=== PATIENT | male | born 1975 | race Caucasian/White ===

== ENCOUNTER 2020-08-23 06:53 | Outpatient (NON) | payer OTHER, SELFPAY ==
[2020-08-24 18:24] LABS: SARS-CoV-2 RNA PCR Negative
== END 2020-08-23 06:54 ==
PROVIDERS: Visit Provider Physician Assistant
DX: Z20.828 Contact with and (suspected) exposure to other viral communicable diseases (principal); J02.9 Acute pharyngitis, unspecified; R52 Pain, unspecified
CPT/HCPCS: 87635; C9803; U0003

== ENCOUNTER → 2022-04-24 11:13 | Outpatient (CLI) | payer OTHER, SELFPAY ==
--- NOTE | ~2022-04-24 | XR_ITS ---
EXAM: XR cervical spine min 6V DATE: 04/24/2022 11:42 HISTORY: M54.12 - Radiculopathy, cervical region . COMPARISON: 11/05/2016. FINDINGS: Craniocervical association and atlantoaxial joint are normal. No prevertebral soft tissue swelling. Reversal of the cervical lordosis centered at C5. Trace anterolisthesis of C4 on C5. Trace retrolisthesis of C5 on C6. Minimal height loss of the C5 and C6 vertebral bodies. Disc space narrowi ng, moderate at C6-7 and mild at C5-6, with uncovertebral joint hypertrophy at both levels. Mild mult ilevel facet sclerosis. IMPRESSION: Lower cervical degenerative disc changes, described above. Multilevel facet arthropathy. No dynamic listhesis. Reviewed, dictated and finalized at location K. IMPRESSION: Lower cervical degenerative disc changes, described above. Multilev el facet arthropathy. No dynamic listhesis.
== END ==
PROVIDERS: PCP Family Medicine; Visit Provider Family Medicine
DX: M54.12 Radiculopathy, cervical region (principal); M41.9 Scoliosis, unspecified
CPT/HCPCS: 72052

== ENCOUNTER → 2022-05-04 13:14 | Outpatient (CLI) | payer SELFPAY ==
--- NOTE | ~2022-05-04 | MR_ITS ---
EXAMINATION: MR cervical spine wo con DATE: 05/04/2022 14:05 INDICATION: Neck and right shoulder and arm pain with progressive weakness and inability to lift the arm TECHNIQUE: Magnetic resonance imaging (MRI) of the cervical spine was performed without intravenous c ontrast. Sequences included sagittal T2-weighted FSE, sagittal T2-weighted FS FSE, sagittal T1-weight ed FSE, axial MERGE and axial T2-weighted FSE. COMPARISON: Radiographs dated 04/24/2022 and 11/05/2016 FINDINGS: A degree cervical dextrocurvature and a degree cervicothoracic levocurvature. Mild reversal of the no rmal cervical lordosis. Chronic mild anterior wedging at C4. Remaining vertebral body heights are nor mal. Bone marrow signal intensity is normal. Moderate disc height loss at C6-C7. Mild disc height lo ss at C4-C5 and C5-C6. Cord signal intensity is normal. The visualized cervical soft tissues are unre markable. The following disc levels are specifically discussed: C2-C3: The disc does not extend beyond the endplate margin. There is mild left uncovertebral joint os teoarthritis. There is mild bilateral facet joint osteoarthritis. There is minimal left neural forami nal stenosis. There is no central canal stenosis. C3-C4: Minimal left paracentral to foraminal zone disc protrusion. There is mild bilateral uncoverteb ral joint osteoarthritis. There is mild right and mild to moderate left facet joint osteoarthritis. T here is mild left neural foraminal stenosis. There is minimal central canal stenosis. C4-C5: Disc is mildly bulging. There is mild bilateral uncovertebral joint osteoarthritis. There is m ild bilateral facet joint osteoarthritis. There is no neural foraminal stenosis. There is mild centra l canal stenosis. C5-C6: Disc is bulging. There is moderate left and severe right uncovertebral joint osteoarthritis. T here is mild bilateral facet joint osteoarthritis. There is mild to moderate left and moderate right neural foraminal stenosis. There is mild with mild indentation of the ventral surface of the cord arlene tral canal stenosis. C6-C7: Disc is bulging. There is moderate left and severe right uncovertebral joint osteoarthritis. T here is mild bilateral facet joint osteoarthritis. There is mild to moderate left and moderate right neural foraminal stenosis. There is mild central canal stenosis. C7-T1: The disc does not extend beyond the endplate margin. There is no uncovertebral joint osteoarth ritis. There is mild right and mild to moderate left facet joint osteoarthritis. There is mild left n eural foraminal stenosis. There is no central canal stenosis. IMPRESSION: 1. Moderate lower cervical predominant spondylosis Reviewed, dictated and finalized at location A.
== END ==
PROVIDERS: PCP Family Medicine; Visit Provider Family Medicine
DX: R53.1 Weakness (principal); M47.812 Spondylosis without myelopathy or radiculopathy, cervical region
CPT/HCPCS: 99199; 72141

== ENCOUNTER 2023-06-17 11:35 | Emergency (ER) | payer OTHER, SELFPAY ==
[2023-06-17 11:50] VITALS: BP 131/87; PULSE 80; RESP 16; TEMP 36.6; O2SAT 100
--- NOTE | 2023-06-17 12:07 | ED.BURNSMOKE ---
HPI - Burn/Smoke Inhalation General Chief complaint: Burn/Smoke Inhalation Stated complaint: Blister on right hand Time Seen by Provider: 06/17/23 11:52 Source: patient and RN notes reviewed Mode of arrival: ambulatory Limitations: no limitations History of Present Illness HPI Narrative: Patient presents today with a burn to the palm of his right hand that was sustained on a grill last night. He has tried no [id number] interventions prior to arrival. Currently rates his pain 5/10. He is not up-to-date on his tetanus vaccine. States he is having some discomfort in his 5th finger when he moves his hand. States he has bumped the blister several times so far today. He is afraid it will rupture while he is working. Related Data Allergies Allergy/AdvReac Type Severity Reaction Status Date / Time No Known Allergies Allergy Verified 06/17/23 11:49 Review of Systems Review of Systems: CONSTITUTIONAL: Denies body aches, fever, chills, or sweats. EYES: Denies visual changes, redness, or discharge. ENT: Denies rhinorrhea, congestion, sore throat, or otalgia. CARDIOVASCULAR: Denies chest pain, palpitations, or edema. RESPIRATORY: Denies cough or dyspnea. GASTROINTESTINAL: Denies abdominal pain, nausea, vomiting, or diarrhea. GENITOURINARY: Denies dysuria or hematuria. SKIN: + burn to right palm MUSCULOSKELETAL: Denies back pain, joint pain, or myalgia. NEUROLOGIC: Denies headache, numbness, tingling, or weakness. PSYCH: Denies depression or anxiety. [facility] Past Medical History Medical History Hyperuricemia Surgical History Surgical History History of removal of skin mole Family History Family History Other Family history of allergic disorder Family history of malignant neoplasm Hypertension Social History Social History Smoking status: Never smoker Alcohol intake: current Comments At time of signature, I have reviewed and agree with nursing past medical, surgical, social and family history unless otherwise noted. Please see nursing chart for further information. There is no relevant family history pertinent to the presenting complaint Exam Narrative: GENERAL: Well-appearing, well-nourished, and in no acute distress. HEAD: Normocephalic, atraumatic. EYES: EOMI. No redness or drainage. Conjunctivae normal. ENT: Mucous membranes pink and moist. NECK: Normal AROM. CHEST: No respiratory distress. EXTREMITIES: Normal range of motion. No edema. SKIN: Warm, dry, no rash. Capillary refill normal. Normal skin turgor. 4 x 2.5 cm by a 1.5 cm high fluid-filled blister to the palm of the right hand at the base of the 5th metacarpal. It is very tightly filled with fluid. Patient states he has some pain in his 5th finger when he tries to make a fist. Distal sensation intact. Capillary refill normal. NEURO: No focal deficits. Alert and oriented x3. Gait steady. PSYCH: Normal affect. No signs of depression or anxiety. Course Course Level of Care: Express Care Visit Vital Signs Vital signs: Vital Signs Temperature 97.9 F 06/17/23 11:50 Pulse Rate 80 06/17/23 11:50 Respiratory Rate 16 06/17/23 11:50 Blood Pressure 131/87 06/17/23 11:50 Pulse Oximetry 100 06/17/23 11:50 Oxygen Delivery Room Air 06/17/23 11:50 Temperature 97.9 F 06/17/23 11:50 Pulse Rate 80 06/17/23 11:50 Respiratory Rate 16 06/17/23 11:50 Blood Pressure 131/87 06/17/23 11:50 Pulse Oximetry 100 06/17/23 11:50 Oxygen Delivery Room Air 06/17/23 11:50 Reviewed. Pt has been instructed to follow up with his PCP regarding his elevated blood pressure today. Procedures Other Procedure Procedure 1: Other Procedure: Large blister on marychuy
[2023-06-17] MEDS: TETANUS,DIPHTHERIA,AC PERTUSSIS ADULT (0.5 ML) BOOSTRIX IM (12:11)
== END 2023-06-17 12:18 | disposition home or self-care (01) ==
PROVIDERS: Emergency Provider Nurse Practitioner; PCP Family Medicine
DX: T23.251A Burn of second degree of right palm, initial encounter (principal); T31.0 Burns involving less than 10% of body surface; Z23 Encounter for immunization; X19.XXXA Contact with other heat and hot substances, initial encounter
CPT/HCPCS: 16020; 90715; 99213; G0463

== ENCOUNTER 2025-06-08 10:09 | Outpatient (CLI) | payer BC, SELFPAY ==
[2025-06-08 16:14] LABS: Alanine Aminotransferase 25 U/L (6-50); Albumin Level 4.5 g/dL (3.5-5.1); Alkaline Phosphatase 75 U/L (38-126); Anion Gap 9 mmol/L (4-12); Aspartate Amino Transferase 44 U/L (17-59); Bilirubin,Total 0.8 mg/dL (0.2-1.3); Blood Urea Nitrogen 11 mg/dL (9-20); Calcium 9.1 mg/dL (8.4-10.2); Carbon Dioxide 25 mmol/L (22-30); Chloride 103 mmol/L (98-107); Cholesterol 237 mg/dL (0-200); Estimated Glomerular Filt Rate > 60; Glucose 85 mg/dL (65-110); HDL Direct 46 mg/dL; Potassium 4.7 mmol/L (3.4-5.0); Sodium 137 mmol/L (137-145); Total Protein 8.0 g/dL (6.3-8.2); Triglycerides 185 mg/dL (<150); Uric Acid 5.9 mg/dL (3.5-8.5)
[2025-06-08 16:46] LABS: Thyroid Stimulating Hormone 1.790 uIU/mL (0.465-4.680)
== END 2025-06-08 10:10 | disposition home or self-care (01) ==
PROVIDERS: PCP Family Medicine; Visit Provider Nurse Practitioner Family
DX: Z00.00 Encounter for general adult medical examination without abnormal findings (principal); E79.0 Hyperuricemia without signs of inflammatory arthritis and tophaceous disease
CPT/HCPCS: 36415; 80053; 80061; 84443; 84550

== ENCOUNTER 2025-06-18 17:38 | Emergency (ER) | payer BC, SELFPAY ==
[2025-06-18 17:57] VITALS: BP 139/83; PULSE 93; RESP 16; TEMP 36.6; O2SAT 99
--- NOTE | 2025-06-18 18:59 | ED_ITS ---
HPI - Ear Problem General Chief complaint: Ear Stated complaint: EARACHE Time Seen by Provider: 06/18/25 18:45 Source: patient and RN notes reviewed Mode of arrival: ambulatory Limitations: no limitations History of Present Illness HPI Narrative: 50-year-old male presents Express Care complaining of bilateral earache for the last 2 weeks. Patient also reports having sinus congestion, nasal drainage. Patient also reports a dry cough. Patient denies any chest pain, shortness of breath, sore throat, body aches, chills, fevers, nausea vomiting, diarrhea, or any other symptoms. Patient has been using [id number] medicine and nasal spray with some relief. Patient denies any significant past medical history. Related Data Home Medications ?Medication ?Instructions ?Recorded ?Confirmed ?Last Taken ?Type testosterone cypionate 200 mg/mL 200 mg IM ONCE Unknown History intramuscular oil Allergies Allergy/AdvReac Type Severity Reaction Status Date / Time No Known Allergies Allergy Verified 06/08/25 10:35 Review of Systems Review of Systems: CONSTITUTIONAL: Denies fever, chills, or sweats. EYES: Denies visual changes, redness, or discharge. ENT: Denies rhinorrhea, sore throat. Positive for congestion and otalgia. CARDIOVASCULAR: Denies chest pain, palpitations, or edema. RESPIRATORY: Positive for cough. Negative for wheezing or dyspnea. GASTROINTESTINAL: Denies abdominal pain, nausea, vomiting, or diarrhea. GENITOURINARY: Denies dysuria or hematuria. SKIN: Denies rash or itching. MUSCULOSKELETAL: Denies back pain, joint pain, or myalgia. NEUROLOGIC: Denies headache, numbness, or weakness. PSYCHIATRIC: Denies anxiety or depression. All other systems reviewed are negative, except as documented in HPI. [facility] Past Medical History Medical History Hyperuricemia Surgical History Surgical History History of removal of skin mole Family History Family History Other Family history of allergic disorder Family history of malignant neoplasm Hypertension Social History Social History Smoking status: Never smoker Alcohol intake: current Lack of Transportation: No Lack of Food: Never True Current Housing: I Have Housing Concerned About Future Housing: No Difficulty Paying Gas/Electric Bills: No Difficulty Paying for Meds: No Currently Unemployed: No Education: Trade/Vocational Certificate Difficulty w/ Childcare or Family Care: No Comments At the time of my signature, I reviewed and agree with the nursing past medical, surgical, social, and family history. There is no relevant family history pertinent to the patient complaint. Exam Narrative: GENERAL: This is a well-nourished, well-developed adult, in no apparent distress. They are non ill-appearing, nontoxic appearing. HEAD: normocephalic, atraumatic. EYES: Sclera clear/white. Conjunctiva normal. Vision is grossly intact. Extraocular movements intact EARS: External ears normal, auditory canals clear and without drainage, TMs normal without perforation. Hearing grossly intact. NOSE: External nose normal with no obvious nasal discharge, nasal turbinates erythematous, no rhinorrhea. Maxillary sinus tenderness to palpation. THROAT: Mucous membranes moist, posterior pharynx erythema or swelling. Uvula midline. Postnasal drip present. NECK: Neck supple, non-tender without lymphadenopathy, masses or thyromegaly. CARDIOVASCULAR: Regular rate and rhythm without murmurs, gallops, or rubs. RESPIRATORY: Clear to auscultation. Breath sounds equal bilaterally. No wheezes, rales, or rhonchi. SKIN: warm, Dry, intact with no suspicious lesions or rash, good texture and turgor. NEURO: awake, alert, and oriented to person, place and time. There were no obvious focal neurologic abnormalities. EXTREMITIES: No joint tenderness, effusion, or edema noted. Course Course Emergency Course: Portions of this record may have been created with voice recognition software Level of Care: Express Care Visit Vital Signs Vital signs: Vital Signs Temperature 98 F 06/18/25 17:57 Pulse Rate 93 06/18/25 17:57 Respiratory Rate 16 06/18/25 17:57 Blood Pressure 139/83 06/18/25 17:57 Pulse Oximetry 99 06/18/25 17:57 Temperature 98 F 06/18/25 17:57 Pulse Rate 93 06/18/25 17:57 Respiratory Rate 16 06/18/25 17:57 Blood Pressure 139/83 06/18/25 17:57 Pulse Oximetry 99 06/18/25 17:57 Reviewed Medical Decision Making MDM Narrative Medical decision making narrative: Patient likely has bacterial sinusitis. Will treat with Augmentin. Discussed physical exam findings. Advised supportive measures and signs/symptoms to go to the ER. Pt is appropriate for outpt treatment and f/u. Differential Diagnosis Differential Diagnosis: Sinusitis, upper respiratory infection, otitis media, otitis externa, viral illness Vital Signs Vital Signs: Vital Signs Temperature 98 F 06/18/25 17:57 Pulse Rate 93 06/18/25 17:57 Respiratory Rate 16 06/18/25 17:57 Blood Pressure 139/83 06/18/25 17:57 Pulse Oximetry 99 06/18/25 17:57 Temperature 98 F 06/18/25 17:57 Pulse Rate 93 06/18/25 17:57 Respiratory Rate 16 06/18/25 17:57 Blood Pressure 139/83 06/18/25 17:57 Pulse Oximetry 99 06/18/25 17:57 Critical Care Time Critical Care Time Critical Care Time: No Discharge Plan Discharge Clinical Impression: Sinusitis Qualifiers: Sinusitis location: unspecified location Chronicity: acute Recurrence: non- recurrent Qualified Code(s): J01.90 - Acute sinusitis, unspecified Patient Disposition: Home Condition: Stable Instructions: Antibiotic Form, Sinusitis (ED) Additional Instructions: Take the antibiotics as directed and complete the course even if you start to feel better. You may use a Neti pot saline rinse 3 times a day with lukewarm distilled water Continue to take Tylenol or Motrin for pain. Use a humidifier or vaporizer at night. Drink plenty of water. 8-10 glasses per day. Use flonase or azelastine spray 2 times per day for 5 days then as needed Take mucinex 2 times per day and be sure to take with 8oz of water. Follow up with Primary provider in 3-5 days Please go to the ER if he develops any difficulty breathing, worsening symptoms, or any other concerns Patient Language: Ethiopian Prescriptions: New amoxicillin-pot clavulanate 875-125 mg tablet 1 tablet PO Q12H 7 Days Qty: 14 0RF No Action allopurinol 300 mg tablet 300 mg PO DAILY Qty: 90 0RF Rx Instructions: NEEDS APPOINTMENT FOR FURTHER REFILLS testosterone cypionate 200 mg/mL oil 200 mg IM ONCE Rx Instructions: as a single dose Follow-up/Referrals: Emmy Booth, ADMINISTRATIVE SUPPORT MANAGER-C [Primary Care Provider, [facility]] Time of Disposition: 18:58
== END 2025-06-18 19:17 | disposition home or self-care (01) ==
PROVIDERS: PCP Nurse Practitioner Family
DX: J01.90 Acute sinusitis, unspecified (principal)
CPT/HCPCS: 99213; G0463